=== PATIENT | female | born 1965 | race Caucasian/White ===

== ENCOUNTER 2020-07-26 13:27 | Outpatient (CLI) | payer OTHER, SELFPAY ==
--- NOTE | 2020-07-26 13:33 | MM_ITS ---
WS: [id number] BILATERAL DIGITAL SCREENING MAMMOGRAPHY WITH CAD CLINICAL INFORMATION: SCREENING HISTORY: Screening mammogram. Left nipple discharge COMPARISON: [id number] TECHNIQUE: Bilateral CC and MLO views. FINDINGS: The breasts are composed of heterogeneous fibroglandular density tissue, which can limit the detectio n of small underlying mass lesions. No suspicious mass, asymmetry, calcifications, or architectural d istortion. No evidence of malignancy. A few punctate calcifications. MM/[place] [id number] IMPRESSION: BI-RADS: 2-Benign FOLLOW UP: 1 Year Follow-up Recommend return to annual screening mammography.
== END 2020-07-26 13:28 | disposition home or self-care (01) ==
PROVIDERS: PCP Nurse Practitioner; Visit Provider Nurse Practitioner
DX: Z12.31 Encounter for screening mammogram for malignant neoplasm of breast (principal)
CPT/HCPCS: 77067

== ENCOUNTER → 2021-11-06 15:13 | Outpatient (BNVA) | payer OTHER, SELFPAY | PROVIDERS: PCP Nurse Practitioner; Referring Provider Nurse Practitioner; Visit Provider Podiatrist Foot & Ankle Surgery | DX: M19.072 Primary osteoarthritis, left ankle and foot (principal) | CPT/HCPCS: 73610 ==

== ENCOUNTER 2024-01-06 09:51 | Outpatient (CLI) | payer OTHER, SELFPAY ==
--- NOTE | 2024-01-06 10:01 | MM_ITS ---
WS: [id number] BILATERAL 3D TOMOSYNTHESIS DIGITAL SCREENING MAMMOGRAPHY WITH CAD CLINICAL INFORMATION: SCREENING HISTORY: Screening mammogram. No current complaints. COMPARISON: 2020 TECHNIQUE: Bilateral CC and MLO views. FINDINGS: The breasts are composed of heterogeneous fibroglandular density tissue, which can limit the detectio n of small underlying mass lesions. No suspicious mass, asymmetry, calcifications, or architectural d istortion. No evidence of malignancy. A few incidental punctate calcifications LEFT breast. IMPRESSION: MM/[place] [id number] BI-RADS: 2-Benign FOLLOW UP: 1 Year Follow-up Recommend return to annual screening mammography.
== END 2024-01-06 09:52 | disposition home or self-care (01) ==
LOC: RAD 09:51
PROVIDERS: PCP Nurse Practitioner; Visit Provider Nurse Practitioner
DX: Z12.31 Encounter for screening mammogram for malignant neoplasm of breast (principal)
CPT/HCPCS: 77063; 77067

== ENCOUNTER 2024-02-05 13:04 | Outpatient (CLI) | payer OTHER, SELFPAY ==
--- NOTE | 2024-02-05 13:11 | MRR_ITS ---
PROCEDURE INFORMATION: Exam: MR Abdomen Without Contrast; Liver Exam date and time: 02/05/2024 1:30 PM Age: 58 years old Clinical indication: Condition or disease; Liver condition; Lesion; Prior surgery; Surgery date: 6+ months; Surgery type: Gallbladder; Additional info: Lesion on liver TECHNIQUE: Imaging protocol: MR Abdomen without contrast. Exam focused on the liver. COMPARISON: No relevant prior studies available. FINDINGS: Liver: There is an 11 x 11 mm high T2 low T1 signal intensity nodule with late portal venous and delayed phase peripheral enhancement located in the posterosuperior right lobe of the liver, best visualized on 5 minute delayed axial images series 400, image 23. There are numerous foci of hyperenhancement in the right lobe of the liver measuring 6-10 mm, predominantly subcapsular in location. These foci are not visible on portal venous and delayed phase images. No T1 or T2 signal abnormality is seen in association with these foci. No sign of hepatic steatosis. Gallbladder and bile ducts: The gallbladder is absent. There is no intrahepatic or extrahepatic bile duct dilation. Pancreas: The pancreas is unremarkable. Spleen: The spleen is unremarkable. Adrenal glands: The adrenal glands are unremarkable. Kidneys and ureters: There is a heterogeneously high T1 and low T2 signal intensity nonenhancing cyst at the upper pole of right kidney consistent with a hemorrhagic cyst. There is no hydronephrosis or ureteral dilation. Right renal parenchymal enhancement pattern is otherwise normal. Left renal parenchymal enhancement pattern is normal. Stomach and bowel: The stomach is unremarkable. Visible portions of the small bowel and colon are unremarkable. Intraperitoneal space: No ascites. Vasculature: The visible portion of the abdominal aorta and visceral arteries are unremarkable. The IVC, hepatic and renal veins are patent. Lymph nodes: No lymphadenopathy. Bones/joints: Visible bones are unremarkable. Soft tissues: The visible portion of the abdominal wall is intact. MR/MR abdomen wo/w con* [id number] IMPRESSION: 1. 11 mm nodule in the posterosuperior right lobe of the liver demonstrates portal venous and delayed phase peripheral enhancement. Imaging features are nonspecific. Primary malignancy and metastasis cannot be excluded. 2. Numerous 6-10 mm foci of arterial phase hyperenhancement in the right lobe of the liver with no associated T1 or T2 signal abnormality and no abnormal enhancement on portal venous and delayed phase images. Findings likely represent transient perfusion anomalies. 3. 2.8 cm hemorrhagic right renal cyst. Benign Bosniak II renal cyst requiring no follow-up. (Reference: Francia) COMMENTS: Consistent with the [employer]'s Incidental Findings Committee white paper (J Am Sienna Radiol 2018): Any incidental renal lesion less than 1 cm or classified as too small to characterize, or any incidental cystic renal lesion characterized as simple-appearing, is likely benign. No follow-up imaging is recommended for these lesions per consensus recommendations based on imaging criteria. REFERENCES: Francia ABRAMS, et al. Bosniak Classification of Cystic Renal Masses, Version 2019: An Update Proposal and Needs Assessment. Radiology. 2019;292(2):475-488.
== END 2024-02-05 13:05 | disposition home or self-care (01) ==
LOC: RAD 13:05
PROVIDERS: PCP Nurse Practitioner; Visit Provider Nurse Practitioner
DX: K76.9 Liver disease, unspecified (principal); N28.1 Cyst of kidney, acquired
CPT/HCPCS: 74183; A9577

== ENCOUNTER 2025-07-04 12:14 | Emergency (ER) | payer OTHER, SELFPAY ==
[2025-07-04 12:16] VITALS: BP 162/88; PULSE 77; RESP 16; TEMP 36.6; O2SAT 98; BMI 30.6
--- OUTSIDE RECORDS SUMMARY | 2025-07-04 12:19 | XMS_ITS | Clinical Summary ---
Author Organization [facility] Address [address] [place] [address] Phone Care Team Providers Care Electric Motor Analyst Name Role Phone Paulson Judi Mckinney [facility] Primary Care Provi nate Allergies Active Allergy Reactions Criticality Noted Date Comments Alpha-Gal (Mtjytnmmg-Ycvme-9,3-Galactose) 06/11/2023 Codeine 06/11/2023 Malt Extract Anaphylaxis High 11/13/2023 Monosodium Glutamate 06/11/2023 Benzonatate 06/11/2023 Medications estradioL (Estrace) 1 mg tablet Take 1 mg by mouth 1 (one) time each day. Active cetirizine (ZyrTEC) 10 mg tablet Take 10 mg by mouth 1 (one) time each day. Active chlorpheniramin e (Chlor-Trimeton ) 4 mg tablet Take 4 mg by mouth every 6 (six) hours if needed for allergies. Active hydroCHLOROthia zide (HYDRODiuril) 25 mg tablet Take 12.5 mg by mouth 1 (one) time each day. Active EPINEPHrine (AUVI-Q) 0.15 mg/0.15 mL inj auto-injector injection Inject into the shoulder, thigh, or buttocks 1 (one) time each day if needed for anaphylaxis. Active nicotine (Nicoderm CQ) 7 mg/[address] 1 patch on the skin 1 (one) time each day at the same time. Active Family History Medical History Relation Comments Heart disease Father Multiple sclerosis Mother No Known Problems Sister Relation Status Comments Father Alive Mother Alive Sister Alive Social History Tobacco Use Types Packs/Day Years Used Date Smoking Tobacco: Every Day Cigarettes 1 10 Passive Smoke Exposure: Current Smokeless Tobacco: Never Tobacco Cessation:Ready to Q uit: No; Counseling Given: No Alcohol Use Standard Drinks/Week Comments Never 0 (1 standard drink = 0.6 oz pur e alcohol) Comments No Sex and Gender Information Value Date Recorded Sex Assigned at Not on file Legal Sex Female 11:00 AM CDT Gender Identity Not on file Sexual Orientation Not on file Last Filed Vital Signs Vital Sign Reading Time Taken Comments Blood Pressure 114/71 11/27/2023 2:25 PM ASPHALT MACHINE OPERATOR Pulse 70 11/27/2023 2:25 PM ASPHALT MACHINE OPERATOR Temperature 36.5 C (97.7 F) 11/27/2023 1:30 PM ASPHALT MACHINE OPERATOR Respiratory Rate 14 11/27/2023 2:25 PM ASPHALT MACHINE OPERATOR Oxygen Saturation 97% 11/27/2023 2:25 PM ASPHALT MACHINE OPERATOR Inhaled Oxygen Concentration - - Weight 76.5 kg (168 lb 9.7 oz) 11/27/2023 9:13 A M ASPHALT MACHINE OPERATOR Height 160 cm (5' 3 ) 11/27/2023 9:13 AM ASPHALT MACHINE OPERATOR Body Mass Index 29.87 11/27/2023 9:13 AM ASPHALT MACHINE OPERATOR Plan of Treatment Health Maintenance Due Date Last Done Comments CT Colonography 1965 Colonoscopy 1965 Colorectal Cancer Screening 1965 FIT-DNA 1965 FIT 1965 FOBT 1965 Sigmoidoscopy 1965 MMR Vaccines (1 of 1 - Standard series) 1966 Varicella Vaccines (1 of 2 - 13+ 2-dose series) 1978 Depression Screening 1983 Diabetes Screening 1983 Social Drivers of Health (SDoH) 1983 Hepatitis A Vaccines (1 of 2 - Risk 2-dose series) 1984 Hepatitis B Vaccines (1 of 3 - 19+ 3-dose series) 1984 Pap Smear 1986 Cervical Cancer Screening 1995 HPV/Cotest 1995 Mammogram 2005 Zoster Vaccines (1 of 2) 2015 DTaP,Tdap,and Td Vaccines (3 - Td or Tdap) 01/06/2018 07/08/2017, 10/06/2007 Pneumococcal Vaccine: 50+ Years (2 of 2 - PCV) 07/08/2018 07/08/2017 Pneumococcal Vaccine (2 of 2 - PCV) 07/08/2018 07/08/2017 COVID-19 Vaccine (1 - 2023-2 5 season) 2025 Influenza Vaccine (#1) 2025 RSV Vaccines (1 - 1-dose 75+ series) 2040 HIB Vaccines Aged Out No longer eligi ble based on patient's age to complete this topic HPV Vaccines Aged Out No longer eligi ble based on patient's age to complete this topic IPV Vaccines Aged Out No longer eligi ble based on patient's age to complete this topic Meningococcal B Vaccine Aged Out No l onger eligible based on patient's age to complete this topic Meningococcal Vaccine Aged Out No marlyn betty eligible based on patient's age to complete this topic Rotavirus Vaccines Aged Out No longer eligible based on patient's age to complete this topic Insurance [facility] [employer] Advance Directives For more information, please contact: [phone] (7:30 AM - 5PM [facility], 7 days a week) * Full Code (Latest Code Status on File) Date Activated Date Inactivated Comments 11/27/2023 1:46 PM 11/27/2023 4:59 PM * Full Code Date Activated Date Inactivated Comments 11/27/2023 9:21 AM 11/27/2023 1:46 PM * Full Code Date Activated Date Inactivated Comments 06/19/2023 8:30 AM 06/19/2023 4:03 PM Care Teams Electric Motor Analyst Relationship Specialty Start Date End Date Judi Paulson FNP [address] [place] [address] PCP - General Family Medicine 06/19/23
--- NOTE | 2025-07-04 12:40 | XR_ITS ---
WS: [id number] XR foot LT min 3V* [id number] REASON FOR EXAM: possible osteo FINDINGS: No fracture or focal bone lesion. No bone erosion or periosteal reaction. Mild changes of osteoarthritis in the PIP and DIP joints of the toes and the articulations in the midfoot. Subtalar joint is intact and relatively well preserved. Moderate anterior calcaneal enthesophyte. XR/XR foot LT min 3V* [id number] IMPRESSION: No acute bone or joint abnormality. Arthropathic change as above.
--- NOTE | 2025-07-04 12:57 | W.ED.EXTPRO ---
HPI - Extremity Problem General: Chief complaint: Wound/Laceration Stated complaint: foot infection Time Seen by Provider: 07/04/25 12:39 Related Data Previous Rx's ?Medication ?Instructions ?Recorded sole supports #1 ea 11/06/21 Allergies Allergy/AdvReac Type Severity Reaction Status Date / Time benzonatate (From Tessalon Allergy ALGY-Anaphy Verified 07/04/25 12:19 Perles) laxis red meat Allergy ALGY-Anaphy Uncoded 07/04/25 12:19 laxis Course Vital Signs: Vital signs: Vital Signs Temperature 97.8 F 07/04/25 12:16 Pulse Rate 77 07/04/25 12:16 Respiratory Rate 16 07/04/25 12:16 Blood Pressure 162/88 07/04/25 12:16 Pulse Oximetry 98 07/04/25 12:16 Oxygen Delivery Me thod Room Air 07/04/25 12:16 Discharge Plan Discharge Condition: Stable Prescriptions: No Action (DME) sole supports See Rx Instructions .Route .MEDSUPPLY Qty: 1 0RF Rx Instructions: As directed Referrals: Judi Paulson FNP [Primary Care Provider, Nurse Practitioner] Print Language: Setswana Coding Level of Care Code ED Real Estate Subagent for Molly Pacheco
--- NOTE | 2025-07-04 13:09 | XR_ITS ---
WS: [id number] XR chest 1V portable [id number] REASON FOR EXAM: fatigue, nausea FINDINGS: Mild tortuosity of the thoracic aorta with normal heart size. Calcified granulomatous disease in both hemithoraces. No acute pulmonary parenchymal or pleural abnormality is identified. No significant abnormality of the bony thorax. XR/XR chest 1V portable [id number] IMPRESSION: No acute chest abnormality.
--- NOTE | 2025-07-04 13:09 | ED_ITS ---
HPI - General Adult 2 General: Chief complaint: Wound/Laceration Stated complaint: foot infection Time Seen by Provider: 07/04/25 12:39 Source: patient Mode of arrival: ambulatory Limitations: no limitations History of Present Illness: Patient is a 59-year-old female presents to ED today with multiple complaints including fatigue, nausea, feeling disoriented (describes as difficulty thinking), having night sweats, believing she might have thrush on her tongue, some sinus pain, as well as some pain to her left lower leg. She states she previously had surgery on her left ankle about a year or so ago in [place]. She ended up developing an MRSA infection postoperatively. She states this healed and she has not had much issue since. She states recently she developed a very small pustule near her incision site. Patient states she treated it with salve and states it is quite a bit better. She stated her primary care provider thought it could be infected and could explain some of her other symptoms so sent her to the emergency department. She has not noticed any drainage. She has not had any fevers. She has not noticed any swelling to the leg or redness/warmth. Onset (ago): day(s) Severity: mild Relieving factors: none Exacerbating factors: none Associated symptoms: Reports confusion and nausea; Deny chest pain, dyspnea, headache(s), malaise, rash, palpitations, syncope or vomiting Treatments prior to arrival: none Related Data Previous Rx's ?Medication ?Instructions ?Recorded sole supports #1 ea 11/06/21 nystatin 100,000 unit/mL oral 3 ml PO QID 14 days #168 mL 07/04/25 suspension Allergies Allergy/AdvReac Type Severity Reaction Status Date / Time benzonatate (From Tessalon Allergy ALGY-Anaphy Verified 07/04/25 12:19 Perles) laxis red meat Allergy ALGY-Anaphy Uncoded 07/04/25 12:19 laxis Review of Systems 2 Const: Reports: body aches and night sweats; Denies: fever(s), chills, fatigue or malaise Eyes: Denies: change in vision, blurry vision or photophobia ENMT: Reports: nasal congestion and other (believes she might have thrush on her tongue); Denies: throat pain, odynophagia, ear or mastoid pain or nasal discharge Card: Denies: chest pain, palpitations, irregular heart rhythm, lightheadedness, syncope or dyspnea on exertion Resp: Denies: dyspnea, productive cough or pain on inspiration GI: Reports: nausea; Denies: abdominal pain, vomiting, heartburn or diarrhea : Denies: flank pain, dysuria or hematuria Musc: Reports: extremity pain; Denies: neck pain, back pain, extremity swelling, joint pain, joint redness, joint warmth or muscle weakness Skin/Breast: Denies: rash Neuro: Reports: confusion; Denies: headache(s), numbness in extremities, weakness in extremities, sensory changes, lack of coordination, difficulty walking, frequent falls, dizziness, vertigo or Slurred speech present Physical Exam 2 Const: COMMON NORMALS: no acute distress, average body habitus, patient oriented x3, no limitations, healthy appearing, alert and well nourished G ENERAL APPEARANCE: cooperative ORIENTATION/CONSCIOUSNESS: Yes awake, Yes oriented to person, Yes oriented to place and Yes oriented to time HENMT: COMMON NORMALS: normocephalic, atraumatic and Normal external nose present HEAD & SCALP: normal to inspection, normocephalic and atraumatic F CALLI & SINUS: normal facial exam, face symmetric and sinus tenderness (mild maxillary) maxillary NOSE: Normal external nose present MOUTH: Normal oral and palatal mucosa present, lip normal, Normal salivary glands and ducts present and other (white coating to tongue) THROAT: posterior oropharynx normal and tonsils normal Eye: COMMON NORMALS: no scleral icterus GENERAL EYE: appearance normal, both eyes and all related structures and normal light reflex DIRECT OPHTHALMOSCOPY: Yes normal light reflex Neck/C-Spine: COMMON NORMALS: full ROM, no lymphadenopathy, supple and no meningeal signs Chest: COMMONS NORMALS: normal inspection of the chest Resp: COMMON NORMALS: normal respiratory effort and clear to auscultation bilaterally AUSCULTATION: clear to auscultation bilaterally Cardio: COMMON NORMALS: regular rate and regular rhythm RATE: regular rate RHYTHM: regular rhythm GI: COMMON NORMALS: Normal to inspection, nondistended, normoactive bowel sounds present, Soft to palpation, non-tender, No hepatosplenomegaly present and no masses PALPATION: Yes Soft to palpation and Yes No hepatosplenomegaly present : COMMON NORMALS: Yes no CVA tenderness BLADDER/KIDNEY EXAM: Yes no CVA tenderness Back/Pelvis: COMMON NORMALS: no CVA tenderness, thoracic and lumbar spine normal to inspection and no thoracic nor lumbar tenderness Extremity: COMMON NORMALS: full ROM, capillary refill normal, no joint enlargement, no clubbing, cyanosis or edema, no calf tenderness and no pedal edema GENERAL: Yes normal exam except as noted LEFT LOWER EXTREMITY: Yes ankle joint (lateral ankle surgical incision that is healed) Left ankle: Yes inspection (small sore overlying incision-no erythema, warmth, discharge), Yes ROM (normal) and Yes neurovascular exam (normal) Neuro: COMMON NORMALS: patient oriented x3, moves all extremities, no focal motor deficits, no sensory deficits noted and gait normal S ENSORIUM/ORIENTATION: Yes alert, Yes oriented to person, Yes oriented to place and Yes oriented to time MENINGEAL SIGNS: Yes no meningeal signs Skin: COMMON NORMALS: no rashes or lesions noted GENERAL SKIN EXAM: no rashes or lesions noted Course 2 Vital Signs: Vital signs: Vital Signs Temperature 97.8 F 07/04/25 12:16 Pulse Rate 77 07/04/25 12:16 Respiratory Rate 16 07/04/25 12:16 Blood Pressure 162/88 07/04/25 12:16 Pulse Oximetry 98 07/04/25 12:16 Oxygen Delivery Me thod Room Air 07/04/25 12:16 [facility] - General Adult Medical Decision Making Patient left ankle appears normal here. She has a very small sore but it is not red, warm, or tender. There is no discharge. Full ROM. XRs unremarkable. No concern for cellulitis, septic arthritis, abscess, blood stream infection, etc. Vitals are stable. Blood work is completely unremarkable. Normal white count/normal CRP and ESR. UA with 3+ blood but otherwise normal. She states she has had blood in her urine analyses before. This has never been worked up. She is a smoker. [facility] for possible cystoscopy. CXR normal. I do not have any concerns at this time for infection. She is A&O with no focal neurologic deficits. Discussed [facility] with [facility] for [facility]. I do not have any suspicion at this time for life threatening conditions. Medical Records I reviewed the patient's medical records. Lab Data I reviewed the patient's lab results. 07/04/25 13:34 07/04/25 13:34 Radiology Impressions Foot X-Ray 07/04/25 12:40 IMPRESSION: No acute bone or joint abnormality. Arthropathic change as above. Ankle X-Ray 07/04/25 13:15 IMPRESSION: No acute/subacute bone or joint abnormality. Mild osteoarthritis. Laboratory Results WBC 9.01 10^3/uL (3.29-11.43) 07/04/25 13:34 RBC 5.14 10^6/uL (3.85-5.65) 07/04/25 13:34 Hgb 15.00 g/dL (11.27-16.99) 07/04/25 13:34 Hct 47.2 % (36-47) H 07/04/25 13:34 MCV 91.8 fl (85-98) 07/04/25 13:34 MCH 29.2 pg (27-33) 07/04/25 13:34 MCHC 31.8 g/dL (30-55) 07/04/25 13:34 RDW 14.1 % (12.1-15.1) 07/04/25 13:34 Plt Count 216 10^3/cmm (157-399) 07/04/25 13:34 MPV 10.4 fL (7.4-10.4) 07/04/25 13:34 Neut % (Auto) 52.1 % 07/04/25 13:34 Lymph % (Auto) 35.2 % 07/04/25 13:34 Mora % (Auto) 5.8 % 07/04/25 13:34 Eos % (Auto) 5.8 % 07/04/25 13:34 Baso % (Auto) 0.9 % 07/04/25 13:34 Neut # (Auto) 4.70 10^3/uL (1.8-7.7) 07/04/25 13:34 Lymph # (Auto) 3.2 10^3/uL (0.8-4.8) 07/04/25 13:34 Mora # (Auto) 0.5 10^3/uL (0.2-0.9) 07/04/25 13:34 Eos # (Auto) 0.5 10^3/uL (0.0-0.8) 07/04/25 13:34 Baso # (Auto) 0.1 10^3/uL (0.0-0.1) 07/04/25 13:34 Nucleated RBC % (auto) 0 % 07/04/25 13:34 Nucleated RBCs # 0.0 /100WBC 07/04/25 13:34 ESR 5 mm/hr (0-15) 07/04/25 13:34 Sodium 141 mmol/L (136-145) 07/04/25 13:34 Potassium 3.8 mmol/L (3.5-5.1) 07/04/25 13:34 Chloride 105 mmol/L (98-107) 07/04/25 13:34 Carbon Dioxide 27 mmol/L (22-29) 07/04/25 13:34 Anion Gap 12.8 (5-19) 07/04/25 13:34 BUN 11 mg/dL (6-20) 07/04/25 13:34 Creatinine 0.6 mg/dL (0.5-0.9) 07/04/25 13:34 GFR Calculation 102.3 mL/min (90-130) 07/04/25 13:34 Glucose 87 mg/dL (65-115) 07/04/25 13:34 Calculated Osmolality 291 mOsm/kg (285-295) 07/04/25 13:34 Calcium 9.3 mg/dL (8.5-10.5) 07/04/25 13:34 Total Bilirubin 0.4 mg/dL (0.15-1.2) 07/04/25 13:34 AST 13 U/L (0-32) 07/04/25 13:34 ALT 16 U/L (0-33) 07/04/25 13:34 Alkaline Phosphatase 90 U/L (35-105) 07/04/25 13:34 C-Reactive Protein 3.0 mg/L (0.0-4.9) 07/04/25 13:34 Total Protein 7.6 g/dL (6.6-8.7) 07/04/25 13:34 Albumin 4.4 g/dL (3.5-5.2) 07/04/25 13:34 Globulin 3.2 g/dL (1.3-4.6) 07/04/25 13:34 Urine Color Yellow (Yellow) 07/04/25 13:28 Urine Appearance Clear (CLEAR) 07/04/25 13:28 Urine pH 6.0 (5-7) 07/04/25 13:28 Ur Specific [place] 1.022 (1.005-1.030) 07/04/25 13:28 Urine Protein Negative (Negative) 07/04/25 13:28 Urine Glucose (UA) Negative (Normal) 07/04/25 13:28 Urine Ketones Negative (Negative) 07/04/25 13:28 Urine Blood 3+ (Negative) A 07/04/25 13:28 Urine Nitrate Negative (Negative) 07/04/25 13:28 Urine Bilirubin Negative (Negative) 07/04/25 13:28 Urine Urobilinogen 1.0 mg/dL (Negative) 07/04/25 13:28 Ur Leukocyte Esterase Negative (Negative) 07/04/25 13:28 Urine RBC 0-4 /hpf (0-2) H 07/04/25 13:28 Urine WBC None /hpf (0-5) 07/04/25 13:28 Ur Squamous Epith Cells None /hpf (0-5) 07/04/25 13:28 Amorphous Sediment Not Reportable 07/04/25 13:28 Urine Bacteria None /hpf (NONE) 07/04/25 13:28 Hyaline Casts None /lpf 07/04/25 13:28 All radiology interpretation(s) finalized by discharge Discharge Plan Discharge Patient Disposition: Home Clinical Impression: Night sweats, Nausea, Thrush, Hematuria Condition: Stable Prescriptions: New nystatin 100,000 unit/mL suspension 3 ml PO QID 14 Days Qty: 168 0RF Rx Instructions: administer 1/2 of dose in each side of the mouth No Action (DME) sole supports See Rx Instructions .Route .MEDSUPPLY Qty: 1 0RF Rx Instructions: As directed Discharge Orders: Discharge ED (Routine); Ordered 07/04/25 Ordered By: Kierra Jackson Referrals: Judi Paulson FNP [Primary Care Provider, Nurse Practitioner] Patient Instructions: Patient Portal & Qasim Instructions Activity Restrictions/Additional Instructions: As we discussed, blood work today showing a normal white count. Both your inflammatory markers (CRP and ESR) were unremarkable. UA showing blood but no evidence for infection. You have indicated you have had blood in your urine previously. We [facility] about [facility] for [facility]. The remainder of your blood work was all unremarkable. Chest x-ray looked normal. We did obtain x-rays of your foot/ankle and these were unremarkable as well. At this time I do not have any concerns for infection in your ankle. Please speak to your primary care provider about your other symptoms including night sweats and nausea. We did discuss possible etiology of thrush on your tongue and we will treat you with medications over the next 2 weeks for this. Print Language: Upper Sorbian Coding Level of Care Code ED Vacuum Frame Operator for Molly Pacheco
--- NOTE | 2025-07-04 13:15 | XR_ITS ---
WS: [id number] XR ankle LT min 3V* [id number] REASON FOR EXAM: lateral ankle pain/previous surgery; concerned infection? FINDINGS: No fracture or focal bone lesion. No bone erosion or periosteal reaction. No radiopaque soft tissue foreign body. Mild narrowing with mild subchondral sclerosis and osteophytosis in the medial and lateral clear spaces of the ankle joint. XR/XR ankle LT min 3V* [id number] IMPRESSION: No acute/subacute bone or joint abnormality. Mild osteoarthritis.
[2025-07-04 13:39] LABS: Glucose Urine UA Negative (Normal); Nitrate Urine Negative (Negative); Specific Gravity, Urine 1.022 (1.005-1.030)
[2025-07-04 13:48] LABS: Hematocrit 47.2 % (36-47); Hemoglobin 15.00 g/dL (11.27-16.99); Mean Corpuscular HGB Conc 31.8 g/dL (30-55); Mean Corpuscular Hemoglobin 29.2 pg (27-33); Mean Corpuscular Volume 91.8 fl (85-98); Nucleated Red Blood Cells % 0 %; Platelet Count 216 10^3/cmm (157-399); Red Blood Count 5.14 10^6/uL (3.85-5.65); White Blood Count 9.01 10^3/uL (3.29-11.43)
[2025-07-04 13:49] LABS: UA Manual Slide Review YES; UA Slide Review UA Slide Review Perf
[2025-07-04 13:50] LABS: Add Urine Microscopic? YES
[2025-07-04 14:07] LABS: Alanine Aminotransferase 16 U/L (0-33); Albumin Level 4.4 g/dL (3.5-5.2); Alkaline Phosphatase 90 U/L (35-105); Anion Gap 12.8 (5-19); Aspartate Amino Transferase 13 U/L (0-32); Blood Urea Nitrogen 11 mg/dL (6-20); Calcium 9.3 mg/dL (8.5-10.5); Carbon Dioxide 27 mmol/L (22-29); Chloride 105 mmol/L (98-107); Creatinine Clr Calc Pharmacy 100.1328; Globulin 3.2 g/dL (1.3-4.6); Glucose 87 mg/dL (65-115); Osmolality Calculated 291 mOsm/kg (285-295); Potassium 3.8 mmol/L (3.5-5.1); Sodium 141 mmol/L (136-145); Total Protein 7.6 g/dL (6.6-8.7)
== END 2025-07-04 14:30 | disposition home or self-care (01) ==
PROVIDERS: Emergency Medicine; Emergency Provider Physician Assistant; PCP Nurse Practitioner
DX: R61 Generalized hyperhidrosis (principal); R11.0 Nausea; B37.0 Candidal stomatitis; R31.9 Hematuria, unspecified
CPT/HCPCS: 36415; 71045; 73610; 73630; 80053; 81001; 85025; 85651; 86140; 99284

== ENCOUNTER 2025-09-23 11:17 | Outpatient (CLI) | payer OTHER, SELFPAY ==
--- NOTE | 2025-09-23 11:26 | CT_ITS ---
WS: [id number] LDCT LUNG CANCER SCREENING TECHNIQUE: Noncontrast CT of the chest with coronal and sagittal reformatted images. CLINICAL INFORMATION: ANNUAL FOLLOW UP/HX OF TOBACCO USE COMPARISON: None. DLP: 58.49 mGy.cm DIvol: Mean CTDIvol: 1.10 (mGy) All CT scans at [facility] use at least one of these dose optimization techniques: automated exposure control; mA and/or kV adjustment per patient size (includes targeted exams where dose is matched to clinical indication); or iterative reconstruction. FINDINGS: No suspicious pulmonary parenchymal abnormalities. 3 mm nodule RIGHT upper lobe. Normal caliber thoracic aorta. Mild aortic calcification. Mild coronary calcification. No mediastinal or hilar lymphadenopathy. No axillary lymphadenopathy. Hepatomegaly. Cholecystectomy clips. Fluid distended stomach. Postoperative changes involving stomach. Adrenal glands are normal. Fatty lesion upper pole RIGHT kidney compatible with angiomyolipoma measuring 2.[address]/CT lung screening [id number] IMPRESSION: LUNG-RADS: 2-Benign Appearance or Behavior FOLLOW UP: 12 Month: Continue annual screening with LDCT
== END 2025-09-23 11:18 | disposition home or self-care (01) ==
LOC: RAD 11:18
PROVIDERS: PCP Nurse Practitioner; Visit Provider Nurse Practitioner Family
DX: Z12.2 Encounter for screening for malignant neoplasm of respiratory organs (principal); F17.210 Nicotine dependence, cigarettes, uncomplicated; I35.8 Other nonrheumatic aortic valve disorders; K76.0 Fatty (change of) liver, not elsewhere classified; K91.89 Other postprocedural complications and disorders of digestive system
CPT/HCPCS: 71271

== ENCOUNTER 2025-09-30 10:54 | Outpatient (CLI) | payer OTHER, SELFPAY ==
--- NOTE | 2025-09-30 10:57 | MM_ITS ---
WS: [id number] BILATERAL 3D TOMOSYNTHESIS DIGITAL SCREENING MAMMOGRAPHY WITH CAD CLINICAL INFORMATION: ANNUAL SCREEN HISTORY: Screening mammogram. No current complaints. COMPARISON: 2023 TECHNIQUE: Bilateral CC and MLO views. FINDINGS: The breasts are composed of heterogeneous fibroglandular density tissue, which can limit the detection of small underlying mass lesions. No suspicious mass, asymmetry, calcifications, or architectural distortion. No evidence of malignancy. Incidental punctate calcification LEFT breast MM/MM scr tomosynthesis [id number] IMPRESSION: DENSITY: The breasts are heterogeneously dense, which may obscure small masses. BI-RADS: 2 - Benign FOLLOW UP: 1 Year Follow-up Recommend return to annual screening mammography.
== END 2025-09-30 10:55 | disposition home or self-care (01) ==
LOC: RAD 10:55
PROVIDERS: PCP Nurse Practitioner; Visit Provider Nurse Practitioner
DX: Z12.31 Encounter for screening mammogram for malignant neoplasm of breast (principal); R92.333 Mammographic heterogeneous density, bilateral breasts; R92.1 Mammographic calcification found on diagnostic imaging of breast
CPT/HCPCS: 77063; 77067